=== PATIENT | male | born 1940 | race Caucasian/White ===

== ENCOUNTER 2017-11-24 06:14 | Inpatient (IN) ==
[2017-11-24] MEDS ORDERED: CeFAZolin Syr 2,000MG/20 ML 2,000 MG/20 ML SYRINGE IVPB ONE (06:39)
[2017-11-24] MEDS ORDERED: Heparin 1,000 UNITS/500 mL 500 ML ONE (06:44)
[2017-11-24] MEDS ORDERED: Ringers Solution, Lactated 1,000 ML IVC SCH (06:45)
[2017-11-24] MEDS ORDERED: Dexamethasone 4 MG/ML VIAL ONE (07:00)
[2017-11-24] MEDS ORDERED: Lidocaine -MPF 4% 5 ML AMPUL ONE (07:00)
[2017-11-24] MEDS ORDERED: Lidocaine -MPF 1% 5 ML AMPUL ONE (07:00)
[2017-11-24] MEDS ORDERED: *HR* Phenylephrine 10 MG/ML VIAL ONE (07:00)
[2017-11-24] MEDS ORDERED: Lidocaine -MPF 2% 2 ML VIAL ONE (07:00)
[2017-11-24] MEDS ORDERED: *HR* Succinylcholine 200 MG/10 ML VIAL IVP ONE (07:00)
[2017-11-24] MEDS ORDERED: Ondansetron 4 MG/2 ML VIAL ONE (07:00)
[2017-11-24] MEDS ORDERED: *HR* FentaNYL (PF) 100 MCG/2 ML VIAL ONE ×2 (07:00→09:40)
[2017-11-24] MEDS ORDERED: *HR* Remifentanil 2 MG VIAL IVP ONE (07:00)
[2017-11-24] MEDS ORDERED: *HR* Rocuronium Bromide 50 MG/5 ML VIAL ONE (07:00)
[2017-11-24] MEDS ORDERED: *HR* Propofol 200 MG/20 ML VIAL IVP ONE (07:07)
--- NOTE | 2017-11-24 07:13 | Anesthesia Evaluation PreOp ---
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 Lovenox bid: last dose 11/23 pm. ASA: last dose this am.) Anesthesia History: No Prior Anesthetic Complications, Past Anesthesia Alcohol Use: heavy, recent Drug use: none Medications and Allergies Aspirin [Adult Low Dose Aspirin EC] 81 mg PO DAILY 11/30/15 [History] Atorvastatin [Lipitor] 10 mg PO DAILY 11/30/15 [History] Valsartan [Diovan] 320 mg PO DAILY 11/30/15 [History] Enoxaparin [Lovenox] 80 mg SQ Q12HR 11/24/17 [History] Warfarin [Coumadin] 2 mg PO MOTH 11/24/17 [History] Warfarin [Coumadin] 4 mg PO SUTUWEFRSA 11/24/17 [History] 3 Allergy/AdvReac Type Severity Reaction Status Date / Time codeine AdvReac Confusion Verified 11/24/17 06:59 - Meds/Allergy Pre-op Review Medications Reviewed: Yes Allergies Reviewed: Yes Beta Blockers on Current Med List: No Anesthesia Results - Labs Laboratory Tests 11/19/17 11/19/17 11/19/17 15:21 15:21 15:21 Hgb 13.1 Hct 38.0 Plt Count 172 PT 11.5 INR 1.1 APTT 35.4 Sodium 140 Potassium 4.1 Chloride 108 H Carbon Dioxide 23 BUN 19 Creatinine 1.26 Glucose 107 H Calcium 9.0 - Imaging Additional studies: Holter Monitor 07/2017: 1. Baseline rhythm atrial flutter, average heart rate 90 BPM. 2. Occasional PVCs. 3. No symptoms noted. 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 Risks, benefits, and alternatives discussed. Patient wishes to proceed.
[2017-11-24] MEDS ORDERED: Lidocaine 1% 20 ML MDV ONE (07:20)
[2017-11-24] MEDS ORDERED: Heparin 1,000 UNITS/500 mL 1,500 ML ONE (07:20)
--- NOTE | 2017-11-24 07:25 | History & Physical Report ---
Date of Encounter: 11/24/17 Time of Encounter: 07:24 24 Hour HP Update - Instructions Instructions: If the History and Physical is less than 30 days old and was completed prior to A.M. admission and or procedure and has NOT been updated on calendar day of procedure please complete this update prior to performing procedure. - Update Patient reports changes in Medical Condition: No Changes in examination, assessment, or condition: No Changes in Medication: No Preop tests/diagnostics Reviewed: Yes Surgery Remains Indicated: Yes Consent for Planned Operative Procedure(s) Verified: Yes - Pre-Operative Checklist Preoperative Checklist Indicated: Yes Prophylactic Antibiotic Ordered: Yes Home Medications Include Beta Kyleigh: No Beta Kyleigh Taken Today (Day of Surgery): No Beta Kyleigh Taken Yesterday (Day Prior to Surgery): No Is VTE Prophylaxis Indicated?: Yes
[2017-11-24] MEDS ORDERED: *HR* EPINEPHrine 1 MG/10 ML SYRINGE IVP ONE ×2 (07:40)
[2017-11-24] MEDS ORDERED: ceFAZolin 1,000 MG, Sodium Chloride IRRigation 1,000 ML IR ONE (07:45)
[2017-11-24] MEDS ORDERED: *HR* Heparin 5,000 UNIT/ML VIAL ONE ×2 (09:44→10:13)
[2017-11-24] MEDS ORDERED: *HR* OxyCODONE Immed Rel 5 MG TABLET PO PRN (09:47)
[2017-11-24] MEDS ORDERED: Ondansetron 4 MG/2 ML VIAL IVP PRN ×2 (09:47→13:26)
[2017-11-24] MEDS ORDERED: MORPHINE SUL Oral CONC 10 MG/0.5 ML ORAL.SYG SL PRN (09:47)
[2017-11-24] MEDS ORDERED: Neostigmine Methylsulfate 3 MG/3 ML SYRINGE ONE (10:56)
--- NOTE | 2017-11-24 11:05 | Anesthesia Procedures ---
Date of Encounter: 11/24/17 Time of Encounter: 08:00 Procedures: Anesthesia - Arterial Line Consent obtained: written consent Time out performed: Yes Local Anesthetic: Lidocaine 1% Amount of Anesthetic used (mls): 3 Size (Gauge): Other (4Fr) Length (inches): 5 Technique Used: sterile prep, guide wire technique Post-Procedure: line taped into place, dry sterile dressing placed Patient tolerated procedure: no complications Complications: none Site: Brachial L Comments: In OR before induction. US exam of left radial artery shows patent good size distal radial artery with proximal narrowing, and patent left ulnar artery. Left brachial artery is patent and of normal caliber. All vessels calcified with moderate atherosclerosis. Brachial artery puncture x2 attempts, 1st by KYREE, 2nd by this MD: 21 ga micropuncture needle real time US, GW, and 4Fr arterial sheath over dilator. ABP transduced.
--- NOTE | 2017-11-24 11:15 | Operative Note ---
Date of procedure: 11/24/17 Pre-op diagnosis: recurrent right carotid stenosis Post-op diagnosis: same Procedure: redo right carotid endarterectomy with 8 Fr shunt and bovine pericardial patch angioplasty Complications: none Anesthesia: GETA Surgeon: Ronaldo Shaffer Was there an blood donor unit assistant present: No Estimated blood loss (cc): 100 Specimen: 0 Condition: stable Disposition: PACU Procedure in Detail: History Pepito Forbes is a 77-year-old white male who has known carotid vascular and peripheral vascular as well as coronary vascular disease. He has been followed on a regular basis with noninvasive testing. His recent testing demonstrated significant changes both in the lower extremities as well as in the right carotid system. Therefore last week he underwent a carotid artery angiogram and a lower extremity angiogram. The carotid and Adam demonstrated a critical stenosis of the right internal carotid artery of about 99%. The patient now comes to the operating room for a redo right carotid endarterectomy. The initial surgery was performed approximately 15-20 years ago. Procedure After informed consent was obtained the patient was taken to the operating room. General endotracheal anesthesia was established under arterial line pressure monitoring. The right neck was sterilely prepped and draped. A timeout protocol was observed. The incision from the original operation was utilized and opened. Dissection was then carried down through the previous scar tissue to identify the common carotid artery. Dissection was then made distally to the bulbar area. The site of the previous endarterectomy was identified. This original endarterectomy was performed with primary closure. Dissection was then made of the carotid arteries with particular attention to preserve the jugular vein and associated nerve structures. This was a tedious dissection due to the scar tissue. After this was accomplished 5000 units of heparin were administered intravenously. The vessels were then evaluated with a direct wave Doppler area this demonstrated a very blunted monophasic signal in the right internal carotid artery. The common carotid artery also had a disturbed and blunted signal. After a three-minute delay the vessels were clamped with the internal carotid artery clamped first. Using an 11 blade knife and Brower scissors to common carotid artery was opened. The arteriotomy was then continued distally along the original carotid endarterectomy suture line. Dissection had allowed the arteriotomy to continue beyond the end of the endarterectomy into an area of the internal carotid artery that had not yet been dissected. An 8 [place] shunt was then inserted atraumatically. It should be noted that there was retrograde bleeding from the right internal carotid artery. Excellent Doppler signals were identified through the 8 [place] shunt. Inspection of the artery revealed chronic thrombus and atherosclerotic material. There was also findings to suggest old inflammatory changes and new plaque formation. The endarterectomy was then begun at the distal aspect of the common carotid artery. Dissection was carried proximally and distally. The orifice of the external carotid artery was endarterectomized as was the superior thyroid artery. The endpoint on the internal carotid artery plaque was smooth and no tacking sutures were necessary. The bed of the vessel was then copiously irrigated with heparinized saline. A bovine pericardial patch was selected and was sewn into position over the newly re-endarterectomized carotid artery. Leaving a small space open on the suture line the shunt was clamped, divided, and removed. The final few sutures were then placed. The internal carotid artery was allowed to back flush first and reclamped. Then the common and external carotid arteries were opened and then finally the internal was reopened. The patient tolerated this maneuver well. There is no hemodynamic distress. Excellent palpable pulses were noted throughout the carotid system. There were excellent Doppler signals as well and much improved from the pre- endarterectomized vessel. With this done the wound was irrigated and hemostasis achieved. A superficial cervical block using half percent Marcaine was performed. The wound was then closed in layers using absorbable suture. A dry sterile dressing was applied. The patient was then extubated in the operating room. He was found to be neurologically intact. He was then transported from the operating room to the recovery room in stable condition.
[2017-11-24] MEDS ORDERED: Acetaminophen IV 1,000 MG/100 ML INFUS..BTL IVPB ONE (11:29)
[2017-11-24] MEDS: *HR* Labetalol 20 MG/4 ML SYRINGE IVP PRN ×2 (11:44→11:53)
--- NOTE | 2017-11-24 12:31 | Anesthesia Evaluation Post Op ---
Date of Encounter: 11/24/17 Time of Encounter: 12:08 - Mental Status Mental Status: Alert & Oriented, Answers Appropriately Notes: Patient's vital signs have been reviewed. Patient is stable postoperatively and has adequately recovered from anesthesia. Patient is determined to have stable airway patency and respiratory function including respiratory rate and oxygen saturation. Patient has a stable heart rate, blood pressure and adequate hydration. Patients mental status is acceptable. Patients temperature is appropriate. Pain and nausea are adequately controlled. The patient's neurological status is not changed from baseline, and no new deficits are moted. The patient was complaining of headache on the operative side, most likely re-perfusion headache, which resolved following 2 doses of labetalol to lower fthe patient's blood pressure. - Discharge PostOp Status: Transfer Patient to floor
[2017-11-24] MEDS ORDERED: Naloxone 0.4 MG/ML INJ IVP PRN (13:26)
[2017-11-24] MEDS ORDERED: Acetaminophen 325 MG TABLET PO PRN (13:26)
[2017-11-24] MEDS: *HR* HYDROcodone/Acet 5/325 mg TABLET PO PRN (14:55)
[2017-11-24] MEDS: *HR* Metoprolol 5 MG/5 ML VIAL IVP SCH ×2 (14:55→18:36)
[2017-11-24] MEDS: ceFAZolin 2,000 MG in 0.9 % Sodium Chloride 100 ML IVPB SCH (14:56)
[2017-11-24] MEDS ORDERED: CeFAZolin Pre 2,000 MG/100 ML 2,000 MG/100 ML BAG IVPB SCH (16:00)
[2017-11-25] MEDS: *HR* Metoprolol 5 MG/5 ML VIAL IVP SCH ×3 (00:18→11:12)
[2017-11-25] MEDS: ceFAZolin 2,000 MG in 0.9 % Sodium Chloride 100 ML IVPB SCH ×2 (00:19→07:56)
[2017-11-25] MEDS: *HR* HYDROcodone/Acet 5/325 mg TABLET PO PRN ×2 (00:22→12:09)
[2017-11-25 03:23] LABS: Hematocrit 30.4 % (37.5-50.1); Immature Granulocytes % 0.2 % (0-4); Immature Platelets 1.8 % (1.1-6.1); Lymphocytes # 0.7 K/mcL (0.6-4.6); Lymphocytes % 11.5 %; Mean Corpuscular HGB Conc 34.2 g/dL (31.6-35.5); Mean Corpuscular Hemoglobin 32.2 pg (28.0-33.3); Mean Corpuscular Volume 94.1 fL (83.0-100.0); Mean Platelet Volume 9.6 fL (9.4-12.4); Monocytes # 0.5 K/mcL (0.0-1.3); Monocytes % 8.2 %; Neutrophils # 4.9 K/mcL (1.6-8.9); Platelet Count 129 K/mcL (140-400); Red Blood Count 3.23 M/mcL (4.19-5.50); Red Cell Distribution Width 12.6 % (11.5-14.5); Segmented Neutrophils % 80.1 %
[2017-11-25 03:26] LABS: Hemoglobin 10.4 g/dL (12.9-16.9)
[2017-11-25 03:44] LABS: BUN/Creatinine Ratio 15 (6-26); Blood Urea Nitrogen 18 mg/dL (8-23); Calcium 8.1 mg/dL (8.6-10.3); Carbon Dioxide 23 mEq/L (23-29); Chloride 113 mEq/L (98-107); Glucose 127 mg/dL (70-105); Osmolality,Calculated 293 (280-300); Potassium 4.3 mEq/L (3.5-5.1); Sodium 140 mEq/L (136-145); eGFR For African Americans > 60 (> 60); eGFR For Non-African Americans 57 (> 60)
[2017-11-25] MEDS ORDERED: *HR* Enoxaparin 80 MG/0.8 ML SYRINGE SQ ONE (08:34)
--- NOTE | 2017-11-25 08:58 | Discharge Summary ---
Date of Encounter: 11/25/17 Time of Encounter: 08:56 - Discharge Diagnosis (1) Bilateral carotid artery disease Priority: Primary Status: Chronic Comments: Recurrent disease of the right internal carotid artery. Patient critical stenosis of nearly 99%. Patient was asymptomatic. (2) CAD (coronary artery disease) Priority: Secondary Status: Chronic Comments: Patient is under treatment for coronary artery disease and is status post valve replacement. He is on chronic anticoagulation therapy. Qualifiers: Coronary Disease-Associated Artery/Lesion type: [place] artery [place] vs. transplanted heart: [place] heart Associated angina: without angina Qualified Code(s): I25.10 - Atherosclerotic heart disease of [place] coronary artery without angina pectoris (3) PAD (peripheral artery disease) Priority: Secondary Status: Chronic Comments: Patient has known distal occlusive disease. He has severe disease that is non- reconstructive O of the left lower extremity. - Hospital Course Hospital course: Mr. Forbes is a 77 year old male With long-standing peripheral vascular cardiovascular and cerebrovascular disease. He is status post bilateral carotid endarterectomies many years ago. He was found on follow-up outpatient scanning to have a high-grade right internal carotid artery stenosis. He went for an interim last week that confirmed that diagnosis. The patient a critical stenosis. He underwent a redo right carotid endarterectomy with a bovine pericardial patch angioplasty yesterday. The patient had no periprocedural complications. He is doing well. He is judged appropriate for discharge on the afternoon of postoperative day # 1. His anticoagulation medications will be restarted today. - Time Spent with Patient Total time spent providing and/or coordinating discharge services: - Discharge Medications Prescriptions: HYDROcodone/Acet 5/325 mg [[place] 5-325 mg] 1 tab PO Q6HR PRN 7 Days #7 tablet PRN Reason: Moderate Pain Home Medications: Aspirin [Adult Low Dose Aspirin EC] 81 mg PO DAILY 11/30/15 [History] Atorvastatin [Lipitor] 10 mg PO DAILY 11/30/15 [History] Valsartan [Diovan] 320 mg PO DAILY 11/30/15 [History] Enoxaparin [Lovenox] 80 mg SQ Q12HR 11/24/17 [History] Warfarin [Coumadin] 2 mg PO MOTH 11/24/17 [History] Warfarin [Coumadin] 4 mg PO SUTUWEFRSA 11/24/17 [History] HYDROcodone/Acet 5/325 mg [[place] 5-325 mg] 1 tab PO Q6HR PRN 7 Days #7 tablet [Rx] Allergies/Adverse Reactions: 3 Allergy/AdvReac Type Severity Reaction Status Date / Time codeine AdvReac Confusion Verified 11/24/17 06:59 Date of admission: 11/24/17 07:25 Primary care physician: Frank Penn MD Consults: None Procedure(s) Performed: Redo right carotid endarterectomy with bovine pericardial patch angioplasty Discharging clinician: Ronaldo Shaffer Anticipated date of discharge: 11/25/17 Exam Vital Signs, Last 4 Hours Temp Pulse Resp BP Pulse Ox 11/25/17 06:42 97.5 F L 57 18 117/46 96 General: Present: Conversant, No Apparent Distress, Well developed, Well nourished HEENT: Present: Atraumatic, Normocephaly Neck: Absent: JVD Cardiac: Present: Reg Rate and Rhythm Lungs: Present: Normal Breath Sounds Neuro: Present: Alert and responsive, No focal deficits noted, Cranial nerves grossly intact Vascular: Present: Surgical incisions (Right neck is clean and dry.) - Patient Status Disposition: Home, Self-Care Functional capacity at discharge: independent ambulation Overall status at discharge: patient is progressing back to baseline - Discharge Instructions Follow Up With: Frank Penn MD [Primary Care Provider] - (Patient will have to make his own follow up appointment per Fili Zapata's office) Ronaldo Shaffer MD [Partnered Physician] - 12/16/17 9:45 am Additional Instructions: Keep right neck incision dry for 5 days following surgery Use ice pack on right neck for next 2 days No lifting greater than 10 pounds. No manual labor. No automobile driving. Coumadin dose as per anticoagulation clinic - Diet and Activity Activity: increase activity as tolerated Diet: advance to your usual diet - VTE Documentation of Mechanical Device: Intermittent pneumatic compression device
[2017-11-25] MEDS ORDERED: Valsartan 160 MG TABLET PO SCH (09:00)
[2017-11-25] MEDS ORDERED: Aspirin Enteric Coated 81 MG Tablet PO SCH (09:00)
[2017-11-25 11:49] VITALS: BP 116/62
== END 2017-11-25 14:48 | disposition home or self-care (01) | DRG 39 ==
LOC: SAMDAY 06:14 → 2NNU 07:25
PROVIDERS: ADMIT Surgery Vascular Surgery; ATTEND Surgery Vascular Surgery